=== PATIENT | female | born 1965 ===

== ENCOUNTER 2019-01-31 08:50 | Day surgery (SDC) | payer BC ==
[~2019-01-31] VITALS: Ht 167.6 cm; Wt 74.8 kg
[2019-01-31] VITALS (9 sets, daily range): BP systolic 106–121; BP diastolic 71–86
[2019-01-31] MEDS ORDERED: Midazolam 2mg/2ml Inj ONE (08:51)
[2019-01-31] MEDS ORDERED: LEXAPRO20 MG ORAL (09:31)
--- NOTE | 2019-01-31 10:12 | Pre-Procedure Note/Attestation ---
Pre-Procedure Note/Attestation Complete Prior to Procedure Planned Procedure: not applicable Procedure Narrative: colonoscopy Indications for Procedure Pre-Operative Diagnosis: screening Attestation I attest that I discussed the nature of the procedure; its benefits; risks and complications; and alternatives (and the risks and benefits of such alternatives ), prior to the procedure, with the patient (or the patient's legal field representative). I attest that, if there was a reasonable possibility of needing a blood transfusion, the patient (or the patient's legal field representative) was given the [facility] standardized written summary, pursuant to the Sebastián Buck[place] Blood Safety Act ([place] Health and Safety Code # 1645, as amended). I attest that I re-evaluated the patient just prior to the surgery and that there has been no change in the patient's H&P, except as documented below: Jesus Pratt MD Jan 31, 2019 10:12
--- NOTE | 2019-01-31 10:33 | Short Stay Surgery H&P ---
History of Present Illness History of Present Illness Chief Complaint screening colon HPI Alessandra García is a 53 year old female who was admitted on for Colon Screening Medication History Scheduled Escitalopram Oxalate* (Lexapro*), 20 MG ORAL DAILY, (Reported) Review of Systems Cardiovascular: Reports: no symptoms Respiratory: Reports: no symptoms Skeletal: Reports: no symptoms Gastrointestinal: Reports: no symptoms Genitourinary: Reports: no symptoms Neurologic: Reports: no symptoms Endocrine: Reports: no symptoms Hematologic: Reports: no symptoms Physical Exam Vital Signs Last Vital Signs Date Time Temp Pulse Resp B/P (MAP) Pulse Ox O2 Delivery O2 Flow Rate FiO2 01/31/19 09:26 Room Air 01/31/19 09:21 97.6 64 18 110/74 97 Skin: normal HENT: normal Heart: normal Lungs: normal Abdomen: normal Extremities: normal Plan Plan of Care colonoscopy Attestation Are the patient's medical conditions optimized for surgery? Attestation Response: yes Jesus Pratt MD Jan 31, 2019 10:33
[2019-01-31] MEDS ORDERED: Propofol 200mg/20ml IV ONE (11:00)
--- NOTE | 2019-01-31 11:14 | Anethesia Preoperative Eval ---
Anesthesia Pre-op PMH/ROS General Date of Evaluation: Jan 31, 2019 Time of Evaluation: 11:11 Anesthesiologist: Yvonne ASA Score: ASA 1 Mallampati Score Class I : Soft palate, uvula, fauces, pillars visible Class II: Soft palate, uvula, fauces visible Class III: Soft palate, base of uvula visible Class IV: Only hard plate visible Mallampati Classification: Class I Surgeon: Santa Diagnosis: colon screening Surgical Procedure: Colonoscopy Anesthesia History: none Social History: smoking - social, alcohol use - social Family History: no anesthesia problems Allergies: Coded Allergies: PENICILLINS (Verified Allergy, Unknown, HIVE, 01/31/19) Medications: see eMAR Patient NPO?: Yes NPO Date: Jan 30, 2019 NPO Time: 22:00 Past Medical History Cardiovascular: Denies: HTN, CAD, [place], valve dz, arrhythmia, other Pulmonary: Reports: other - sinus problems Gastrointestinal/Genitourinary: Denies: GERD, CRI, ESRD, other Neurologic/Psychiatric: Reports: depression/anxiety Endocrine: Denies: DM, hypothyroidism, steroids, other HEENT: Denies: cataract (L), cataract (R), glaucoma, [place] (L), [place] (R), other Hematology/Immune: Denies: anemia, DVT, bleeding disorder, other Musculoskeletal/Integumentary: Denies: OA, RA, DJD, DDD, edema, other PSxH Narrative: right oophorectomy, myomectomy Anesthesia Pre-op Phys. Exam Physician Exam Last Vital Signs Date Time Temp Pulse Resp B/P (MAP) Pulse Ox O2 Delivery O2 Flow Rate FiO2 01/31/19 09:26 Room Air 01/31/19 09:21 97.6 64 18 110/74 97 Constitutional: NAD Neurologic: CN 2-12 intact Cardiovascular: RRR Respiratory: CTA Gastrointestinal: S/NT/ND Airway Exam Mallampati Score: Class I MO: full ROM: full Teeth: intact Dentures: no upper, no lower Anesthesia Pre-op A/P Studies Pre-op Studies: EKG - NSR with sinus arrthimiyas Risk Assessment & Plan Assessment: A&Ox4 Plan: MAC Status Change Before Surgery: No Pre-Antibiotics Given Within 1 Hr of Incision: No Isatu Russell CRNA Jan 31, 2019 11:14
--- NOTE | 2019-01-31 11:15 | Immediate Post-Op Evaluation ---
Immediate Post-Op Evalulation Immediate Post-Op Evalulation Procedure: colonoscopy Date of Evaluation: Jan 31, 2019 Time of Evaluation: 11:30 IV Fluids: NSS 400 ml Blood Products: 0 Estimated Blood Loss: 0 Urinary Output: 0 Blood Pressure Systolic: 106 Blood Pressure Diastolic: 71 Pulse Rate: 64 Respiratory Rate: 16 O2 Sat by Pulse Oximetry: 100 Temperature (Fahrenheit): 97 Pain Score (1-10): 0 Nausea: No Vomiting: No Complications none Patient Status: awake, reacts, patent Hydration Status: adequate Given Within 1 Hr of Incision: Isatu Moctezuma CRNA Jan 31, 2019 11:15
--- NOTE | 2019-01-31 11:15 | 48 Hour Post Anesthesia Eval ---
Post Anesthesia Evaluation Procedure: colonoscopy Date of Evaluation: Jan 31, 2019 Time of Evaluation: 11:38 Blood Pressure Systolic: 106 0: 71 Pulse Rate: 66 Respiratory Rate: 20 Temperature (Fahrenheit): 97 O2 Sat by Pulse Oximetry: 100 Airway: patent Nausea: No Vomiting: No Pain Intensity: 0 Hydration Status: adequate Mental Status/LOC: patient returned to baseline Follow-up care needed: patient intructions given Isatu Russell CRNA Jan 31, 2019 11:15
--- NOTE | 2019-01-31 11:25 | Endoscopy Procedure Note ---
Endoscopy Procedure Note General Indication for Procedure: screening Procedures Performed: colonoscopy Operative Findings/Diagnosis: 5 polyps Specimen: yes Pt Tolerated Procedure Well: Yes Estimated Blood Loss: none Anesthesia Anesthesiologist: michaelle Anesthesia: MAC Inserted Devices Implant(s) used?: No Quality Quality of Bowel Preparation: Excellent Did scope reach the cecum?: Yes Was there any complications?: No GI Core Measures 50 yrs or older w/o bx or poly: No 10yrs. F/U not recommended: Yes If not recommended, why?: Above average risk 10 yrs. F/U needed: Yes 18 years or older w/prev. colo: No Jesus Pratt MD Jan 31, 2019 11:25
[2019-01-31] MEDS ORDERED: fentaNYL 100 mcg/2 mL IV PRN (11:45)
--- NOTE | 2019-01-31 13:07 | Cardiology Report ---
APPROVED REPORT EKG Measurement Heart [id number] CT [id number] Normal sinus rhythm with sinus arrhythmia Nonspecific T wave abnormality Abnormal ECG
--- NOTE | 2019-01-31 18:16 | Procedure Note ---
DATE OF PROCEDURE: 01/31/2019 SURGEON: Jesus Pratt M.D. ANESTHESIOLOGIST: Yvonne CHÁVEZ. PROCEDURE: Colonoscopy with biopsy. ANESTHESIA: Per Yvonne CHÁVEZ. INSTRUMENT: Olympus adult flexible colonoscope. INDICATIONS: Screening colonoscopy. The procedure, risks, benefits, and possible consequences, including hemorrhage, aspiration, perforation and infection, and alternative treatments, were explained to the patient/legal guardian by Dr. Jesus Pratt and the patient/legal guardian understood and accepted these risks. DESCRIPTION OF PROCEDURE: After informed consent was obtained and the patient was adequately sedated, first rectal exam was performed which was positive for internal hemorrhoids. Then, the scope was advanced from the rectum into the cecum and then subsequently to terminal ileum. Quality of prep was excellent. The patient had a total of 5 polyps in this colonoscopy examination, 1 in transverse colon and 4 in the rectosigmoid area. All these polyps were very small, hyperplastic looking, and all removed with the cold biopsy forceps technique. The patient had evidence of scattered diverticulosis in the left colon and one diverticulum in the cecum. The patient had evidence of medium-sized, nonbleeding internal hemorrhoids on retroflexion of the rectum. The patient tolerated the procedure very well without any complication. SUMMARY OF FINDINGS: 1. Five colonic polyps removed, see above for details. 2. Diverticulosis. 3. Internal hemorrhoids. RECOMMENDATIONS: Follow up pathology. Recommend repeat colonoscopy in 3 years given 5 polyps. Treat for hemorrhoids if they become symptomatic. Jesus Pratt M.D. DR: Loretta JOB#: [id number] CC:
== END 2019-01-31 13:00 | disposition home or self-care (01) ==
LOC: GAS 08:50
DX: Z12.11 Encounter for screening for malignant neoplasm of colon (principal); K57.90 Diverticulosis of intestine, part unspecified, without perforation or abscess without bleeding; K64.8 Other hemorrhoids; K63.5 Polyp of colon; I49.9 Cardiac arrhythmia, unspecified; Z88.0 Allergy status to penicillin; F32.9 Major depressive disorder, single episode, unspecified; F41.9 Anxiety disorder, unspecified; Z90.721 Acquired absence of ovaries, unilateral
CPT/HCPCS: 45380; 93005; J2250; J2704; 94003; 94150